=== PATIENT | female | born 1940 | race African-American/Black ===

== ENCOUNTER 2020-04-03 15:14 | Inpatient (IN) | payer MEDICARE, BC, SELFPAY ==
[~2020-04-03] VITALS: Ht 165.1 cm; Wt 66.4 kg
[2020-04-03 15:14] VITALS: BP_SYST 85
--- NOTE | 2020-04-03 15:14 | NUR ---
Patient to ER bed 8 to gown for evaluation. Side rails up. Report given to MAGALY NOLASCO.
--- NOTE | 2020-04-03 15:15 | NUR ---
Patient presented to ER C/O ALOC. PT BIB SQ64 from home. Per EMS family report PT ALOCx1 week, nonverbal, having incomprehensible mumbling, baseline AAOX3. Patient skin flaky, cap refill less than 3sec, PT placed on cardiac nurse and pulse-ox, BP 85/61 on arrival. Will continue to monitor.
--- NOTE | 2020-04-03 15:48 | NUR ---
ER Dr. Colbert at bedside examining patient.
[2020-04-03] MEDS ORDERED: NS 500 ML IV ONE (16:00)
--- NOTE | 2020-04-03 16:01 | NUR ---
RT AT BEDSIDE FOR ABG
--- NOTE | 2020-04-03 16:55 | NUR ---
Patient transported to radiology via [facility], accompanied by Franklyn fonseca .
[2020-04-03 17:00] LABS: BASOPHILS # (AUTO) 0.1 K/uL (0.0-0.2); BASOPHILS % (AUTO) 1.1 % (0.0-2.0); EOSINOPHILS # (AUTO) 0.3 K/uL (0.0-0.4); EOSINOPHILS % (AUTO) 3.2 % (0.0-4.0); HEMATOCRIT 35.1 % (36-48); HEMOGLOBIN 11.9 g/dL (12.0-16.0); LYMPHOCYTES # (AUTO) 0.6 K/uL (1.0-5.5); LYMPHOCYTES % (AUTO) 6.5 % (20.5-51.5); MEAN CORPUSCULAR HEMOGLOBIN 28 pg (27-31); MEAN CORPUSCULAR HGB CONC 34 % (32-36); MEAN CORPUSCULAR VOLUME 84 fL (79.0-98.0); MONOCYTES % (AUTO) 10.6 % (1.7-9.3); NEUTROPHILS # (AUTO) 7.3 K/uL (1.8-7.7); NEUTROPHILS % (AUTO) 78.6 % (40.0-70.0); PLATELET COUNT (AUTO) 223 K/uL (130-430); RED BLOOD CELL COUNT(AUTO) 4.18 MIL/uL (4.2-6.2); RED CELL DISTRIBUTION WIDTH 18.3 % (9.0-15.0); WHITE BLOOD COUNT (AUTO) 9.3 K/uL (4.8-10.8)
--- NOTE | 2020-04-03 17:08 | NUR ---
Patient to ER bed 8
[2020-04-03 17:16] LABS: ANION GAP 11 (5-15); CALCIUM 7.8 mg/dL (8.4-11.0); CHLORIDE 100 mmol/L (98-107); GLUCOSE 144 mg/dL (70-99); POTASSIUM 3.2 mmol/L (3.5-5.1); SODIUM SERUM 132 mmol/L (136-145); UREA NITROGEN, BLOOD 21 mg/dL (8-21)
[2020-04-03 17:22] LABS: ALANINE AMINOTRANSFERASE 62 U/L (12-78); ALBUMIN 1.7 g/dL (3.4-4.8); ASPARTATE AMINOTRANSFERASE 304 U/L (10-37); TOTAL BILIRUBIN 2.3 mg/dL (0.0-1.0)
[2020-04-03 17:23] LABS: BILIRUBIN,URINE 1+ (NEGATIVE); BLOOD, URINE NEGATIVE (NEGATIVE); CLARITY/URINE CLEAR (CLEAR); GLUCOSE,URINE NEGATIVE (NEGATIVE); KETONES,URINE NEGATIVE (NEGATIVE); LEUKOCYTE ESTERASE ,URINE NEGATIVE (NEGATIVE); NITRITE, URINE NEGATIVE (NEGATIVE); PROTEIN URINE NEGATIVE (NEGATIVE)
[2020-04-03 17:25] LABS: UROBILINOGEN,URINE >=8 (0.2-1.0)
[2020-04-03 17:26] LABS: COLOR,URINE AMBER (YELLOW)
[2020-04-03 17:30] LABS: INR 1.4 (0.8-1.2); PROTHROMBIN TIME 14.3 SECS (9.5-12.5)
[2020-04-03 17:50] LABS: CKMB RELATIVE INDEX 0.5 (0.0-2.9); CREATINE KINASE MB 1.8 ng/mL (0-3.6)
[2020-04-03] MEDS ORDERED: POTASSIUM CHLORIDE 20 MEQ TAB.PRT.SR PO ONE (18:00)
[2020-04-03] MEDS ORDERED: PIPERACILLIN/TAZO 3.375 GM in NS 50 ML IV ONE (18:30)
--- NOTE | 2020-04-03 18:34 | NUR ---
Patient transported to radiology via [facility], accompanied by HEATHER CR.
--- NOTE | 2020-04-03 19:10 | NUR ---
lab at bedside drawing blood.
--- NOTE | 2020-04-03 19:25 | NUR ---
Report to Chiquita NOLASCO
--- NOTE | 2020-04-03 19:25 | NUR ---
RECEIVED REPORT FROM GAURAV MCKENZIE FOR CONTINUATION OF CARE.
--- NOTE | 2020-04-03 19:30 | NUR ---
PT AWAKE, NONVERBAL, LAYING IN BED. NO SIGNS OF DISTRESS. BREATHING EVEN AND UNLABORED. BOTH IVS FLUSHED WITH 10 CC OF NORMAL SALINE. NO SIGNS OF INFILTRATION. VITAL SIGNS STABLE.
--- NOTE | 2020-04-03 19:33 | NUR ---
notified MD second lactic resulted 2.6. no change in order.
--- NOTE | 2020-04-03 19:45 | NUR ---
DAUGHTER SATHISH AT BEDSIDE SPEAKING WITH MOM BEFORE PATIENT IS TRANSFERRED.
--- NOTE | 2020-04-03 19:50 | NUR ---
PT UNABLE TO SWALLOW MEDICATIONS. MD AWARE. KDUR 20 MEQ NOT ADMINISTERED. NO CHANGE IN ORDERS.
[2020-04-03] MEDS ORDERED: PIPERACILLIN/TAZOBACTAM 3.375 GM/VIAL (ZOSYN) IV ONE (19:55)
--- NOTE | 2020-04-03 20:39 | NUR ---
Patient's code status is FULL CODE PER DAUGHTER paperwork completed and placed in chart. Addendum: 04/03/20 at 2042 by ELIN PT NONVERBAL AT THIS TIME. DAUGHTER, SATHISH, IS NEXT OF KIN AND PRESENT AT THIS TIME.
--- NOTE | 2020-04-03 21:25 | NUR ---
PATIENT RESTING IN BED, NO SIGNS OF DISTRESS, BREATHING EVEN AND UNLABORED. PT VITAL SIGNS STABLE.
--- NOTE | 2020-04-03 21:46 | NUR ---
DR. PEREIRA SPEAKING WITH DR. KATE FROM [facility].
--- NOTE | 2020-04-03 22:07 | NUR ---
DR. PEREIRA ORDERED TSH & FREE T4 FOR [facility] PRIOR TO TRANSFER. LAB ABLE TO ADD ON LABS FROM PREVIOUS DRAW.
[2020-04-03 22:39] LABS: FREE T4 (FREE THYROXINE) 0.4 ng/dL (0.6-1.6)
[2020-04-03 23:42] LABS: THYROID STIMULATING HORMONE 65.37 uIu/mL (0.34-4.82)
--- NOTE | 2020-04-03 23:43 | NUR ---
CRITICAL LAB REPORTING - TSH 65.37. AWARE.
--- NOTE | 2020-04-04 00:29 | NUR ---
Dr. Farmer on the phone with Dr. Austin discussing transport. Dr. Austin instructs to admit here.
[2020-04-04] MEDS ORDERED: LEVO125T PO (00:37)
[2020-04-04] MEDS ORDERED: HYDR50TA3 PO (00:37)
[2020-04-04] MEDS ORDERED: SIMV10TA2 PO (00:37)
[2020-04-04] MEDS ORDERED: DONE10TA44 PO (00:37)
[2020-04-04] MEDS ORDERED: GABA-529 PO (00:37)
[2020-04-04] MEDS ORDERED: METO50TA7 PO (00:37)
--- NOTE | 2020-04-04 00:37 | NUR ---
Medication reconciliation completed with information provided by patient medication bottles. Any prior medication reconciliation on file was reviewed and corrected.
--- NOTE | 2020-04-04 01:47 | NUR ---
RECEIVED ADMIT ORDERS FROM DR. SENA.
--- NOTE | 2020-04-04 01:51 | NUR ---
SPOKE WITH LEXI YOU RN TO REQUEST TELE BED.
--- NOTE | 2020-04-04 01:52 | NUR ---
Patient will be admitted to care of JAIDA. Admitted to TELE unit. Will go to room 119A. Belongings list completed. Complete and up to date summary report printed. SBAR report to be given at bedside with opportunity for questions.
[2020-04-04] MEDS ORDERED: LEVOTHYROXINE SODIUM 0.1 MG VIAL IVP ONE (02:15)
--- NOTE | 2020-04-04 02:30 | NUR ---
LEFT PTS DAUGHTER A VOICEMAIL TO INFORM HER OF ADMISSION TO [facility] THAN BEING TRANSFERRED TO [facility].
--- NOTE | 2020-04-04 02:33 | NUR ---
Transfer to tele via ACLS protocol. Licensed nurse present. IV present no signs or symptoms of infiltration.
--- NOTE | 2020-04-04 02:39 | NUR ---
Pt arrives from ER via stretcher on principal security architect. Report received from GAURAV Porras. Pt with eyes open and able to track, non-verbal, slow to follow commands. Respirations even and non-labored. PIV Right wrist and LFA secure and patent. VSCordelia, MARI.
--- NOTE | 2020-04-04 02:39 | NUR ---
ADMISSION NOTE Received patient from ER via gurney. Patient admitted with diagnosis of HYPOTHYROIDISM AND CONFUSION. Patient is awake, alert, oriented X 1. Patient oriented to hospital room, call light, toileting, pain management and safety-teach back done. Patient informed that DEBBIE will be nurse and that their room number is 119A. Personal belongings checked and Belongings List documented. Call light within reach.
[2020-04-04 03:12] VITALS: BP_SYST 137
--- NOTE | 2020-04-04 03:30 | NUR ---
PT IS NONVERBAL, TRIED TO CALL DAUGHTER SATHISH [phone] FOR SEVERAL TIMES TO OBTAIN MORE INFORMATION (FLU VACCINE STATUS, HISTORY, DIET AT HOME), SHE DIDN'T ANSWER. LEFT MESSAGE AT THIS TIME.
[2020-04-04] MEDS: D5NS 1,000 ML IV SCH ×2 (03:36→18:04)
--- NOTE | 2020-04-04 04:15 | NUR ---
Dr. Prabhakar villafuerte. Addendum: 04/04/20 at 0441 by Carlos Canales RN Skip reyes
--- NOTE | 2020-04-04 05:00 | NUR ---
Pt resting quietly, even and non-labored respirations, NAD.
--- NOTE | 2020-04-04 05:33 | NUR ---
TRIED TO CALL DAUGHTER AGAIN, SATHISH [phone] TO OBTAIN MORE INFORMATION (FLU VACCINE STATUS, HISTORY, DIET AT HOME), STILL NOT ANSWERING. WILL TRY AGAIN
--- NOTE | 2020-04-04 05:52 | NUR ---
TRIED TO CALL DAUGHTER AGAIN, SATHISH [phone], STILL NOT ANSWERING. WILL TRY AGAIN
--- NOTE | 2020-04-04 07:25 | NUR ---
Pt report given to oncoming RN.
--- NOTE | 2020-04-04 07:26 | NUR ---
Opening Note patient in bed sleeping, respirations even and unlabored, no signs of distress noted, bed locked and at low position, call light within reach, fall and aspiration precautions put in place, will monitor patient for any changes.
--- NOTE | 2020-04-04 07:48 | NUR ---
CONSULTATION: REASON FOR CONSULT: LIVER METS CONSULTING PHYSICIAN: BUTCH RAYMOND ORDERED BY: JAIDA SPOKE WITH CRAIG [phone] DR KELLY IS MERCHANDISE PLANNING MANAGER FOR DR RAYMOND
[2020-04-04 07:50] VITALS: BP_SYST 128
--- NOTE | 2020-04-04 08:09 | NUR ---
Nutrition Update Brian scale 11 noted. Pt admitted for hypothyroidism Diet: NPO BMI: 24.3 kg/m2 RD to follow per nutrition care standards.
[2020-04-04] MEDS ORDERED: LEVOTHYROXINE SODIUM 0.1 MG VIAL IVP SCH ×3 (09:00)
--- NOTE | 2020-04-04 09:39 | NUR ---
FAMILY CALLED: SPOKE WITH DAUGHTER SATHISH REGARDING PATIENT'S INFLUENZA STATUS. SATHISH STATED THE PATIENT IS CURRENT WITH BOTH INFLUENZA AND PNEUMONIA VACCINE UPDATED CHART AND WILL INFORM GAURAV GORDON.
--- NOTE | 2020-04-04 09:50 | NUR ---
MD Rounds Dr. Salcido at bedside assessing patient, will follow up with any new orders being input by MD.
[2020-04-04] MEDS ORDERED: LACTULOSE 20 GM/30 ML UDC PO ONE (10:30)
[2020-04-04] MEDS ORDERED: RIFAXIMIN 550 MG TABLET PO ONE (10:30)
--- NOTE | 2020-04-04 10:45 | NUR ---
RN Rounds/Medication patient in bed resting, respirations even and unlabored, administered medications as ordered per MD, patient tolerated well, updated family of patients status, will continue to monitor patient, safety measures maintained.
[2020-04-04 11:35] VITALS: BP_SYST 121
--- NOTE | 2020-04-04 12:26 | NUR ---
Wound Evaluation: Wound Consult ordered for Low Brian Score. Patient evaluated for a low Brian score of an 11. Patient was awake, alert, oriented and received in a [place] Bed with an Atmos-Air 9000 mattress. Patient needs to be turned in bed. Bilateral lower extremities have 1+ pitting edema. Skin assessment: 1. Buttocks: Blanchable red erythema from IAD, present on admission. Recommend: Cleanse involved area with mild soap and water. Gently pat dry. Apply moisture barrier cream to involved area. Perform site care 4 times daily as needed for soiling. Recommend: Reposition patient side to side only every 2 hours with pillow support. Elevate, off-load and float bilateral heels with one pillow lengthwise under each extremity at all times. Offload pressure areas with pillows for pressure re-distribution. Perform skin care and monitor skin integrity Q shift. Use moisture barrier cream on moisture susceptible areas QID and PRN for soiling. Place patient on a low air-loss mattress.
--- NOTE | 2020-04-04 12:51 | NUR ---
Tate spoke with Brittni from [facility] regarding patient's status.
--- NOTE | 2020-04-04 13:30 | NUR ---
Transfer information spoke with ANTHONY More, transfer pending, waiting on a bed to available from [facility].
--- NOTE | 2020-04-04 15:00 | NUR ---
RN Rounds patient sleeping, respirations even and unlabored, no signs of distress noted, safety measures maintained.
[2020-04-04 15:37] VITALS: BP_SYST 121
--- NOTE | 2020-04-04 18:08 | NUR ---
RN Rounds patient in bed resting, no signs of distress noted, will continue to monitor patient for any changes.
--- NOTE | 2020-04-04 19:10 | NUR ---
Report given to transfer facility spoke with Alicja RN from [facility], gave Alicja update information on patient.
--- NOTE | 2020-04-04 19:20 | NUR ---
Closing Note patient in bed, no signs distress noted, endorsed patient care to oncoming mini shifter nurse.
[2020-04-04 19:52] VITALS: BP_SYST 121
--- NOTE | 2020-04-04 20:17 | NUR ---
D/C Patient Patient in stable condition, ID band removed, tele box removed. IV catheters removed, catheter tip intact and dressing applied, no active bleeding. Patient's daughter Oumou called and agreeable w/ Transfer to [facility]. All belongings sent with patient.
[2020-04-04] MEDS ORDERED: RIFAXIMIN 550 MG TABLET PO SCH (21:00)
[2020-04-04] MEDS ORDERED: LACTULOSE 20 GM/30 ML UDC PO SCH (21:00)
[2020-04-05 08:06] LABS: AFP, TUMOR MARKER 5.2 ng/mL (0.0-8.3)
== END 2020-04-04 20:21 | disposition short-term general hospital (02) | DRG 91 ==
LOC: SED 15:14 → STU 04-04 01:48
PROVIDERS: ADMIT Internal Medicine Hospice and Palliative Medicine; ATTEND Internal Medicine Hospice and Palliative Medicine
DX: G92 Toxic encephalopathy (principal); E43 Unspecified severe protein-calorie malnutrition; C78.7 Secondary malignant neoplasm of liver and intrahepatic bile duct; E03.9 Hypothyroidism, unspecified; Z20.828 Contact with and (suspected) exposure to other viral communicable diseases; E78.5 Hyperlipidemia, unspecified; E86.0 Dehydration; F03.90 Unspecified dementia, unspecified severity, without behavioral disturbance, psychotic disturbance, mood disturbance, and anxiety; I10 Essential (primary) hypertension; R06.4 Hyperventilation; K74.60 Unspecified cirrhosis of liver; R16.0 Hepatomegaly, not elsewhere classified; Z79.899 Other long term (current) drug therapy; Z68.24 Body mass index [BMI] 24.0-24.9, adult
CPT/HCPCS: 36415; 36600; 70450-TC; 71045; 76376; 80053; 81003; 82105; 82378; 82550-TC; 82553-TC; 82803-TC; 83605; 84439; 84443-TC; 84484; 85025; 85610-TC; 85730-TC; 87040-TC; 87086; 87186-TC; 93005; 96361; 96365; 96375; 99285; G0378; J2543; J7042